=== PATIENT | female | born 1945 | race African-American/Black ===

== ENCOUNTER → 2018-03-25 | Outpatient (CLI) | payer MEDICARE | END | disposition home or self-care (01) | LOC: KCIC MRI 12:34 | DX: S43.492A Other sprain of left shoulder joint, initial encounter (principal); X58.XXXA Exposure to other specified factors, initial encounter; Y93.89 Activity, other specified; Y92.89 Other specified places as the place of occurrence of the external cause; Y99.8 Other external cause status | CPT/HCPCS: 73221 ==

== ENCOUNTER → 2019-10-29 | Day surgery (SDC) | payer MEDICARE ==
[~2019-10-29] MED LIST: ACET-704 PO; FEBU40TA PO; FERR220S8 PO; HYDR-3164 PO; LIDOCAINE 2% PF 5 ML VIAL. ONE; METO50TA6 PO; POTA10TA12 PO; PROPOFOL 20 ML IV ONE; ZOLP10TA PO
[2019-10-29 07:54] VITALS: BP 143/74
--- NOTE | 2019-10-29 08:50 | CONS ---
DATE OF CONSULTATION: 10/29/2019 REFERRING PHYSICIAN: TAMMIE Nieves REASON FOR CONSULTATION: Colorectal screening. HISTORY OF PRESENT ILLNESS: This 74-year-old -Luxembourger female with past medical history significant for hypertension and hyperlipidemia is seen for interval colon exam. Previous exam was performed in 2009 which was unrevealing. Bowel habits are regular. No diarrhea or constipation. Weight and appetite are stable. No bleeding is present. She is noted to have a pelvic mass without pain at this time and has mild anemia with it. Interval colonoscopy is recommended to further assess. PAST MEDICAL HISTORY: 1. Arthritis. 2. Hypertension. 3. Hyperlipidemia. ALLERGIES: IBUPROFEN. MEDICATIONS: Include: 1. Tylenol. 2. Ferrous sulfate. 3. Metoprolol. 4. Zolpidem. 5. K-Alexia. SOCIAL HISTORY: She is a former smoker, nondrinker. PAST SURGICAL HISTORY: 1. Back surgery. 2. Cholecystectomy. 3. Tubal ligation. REVIEW OF SYSTEMS: Per records. PHYSICAL EXAMINATION: GENERAL: Reveals a well-nourished, well-developed -Luxembourger female. VITAL SIGNS: Temperature 97.4, pulse 66, respirations 20. LUNGS: Clear. CARDIOVASCULAR: Reveals an S1, S2 without S3, S4 or appreciable murmur. ABDOMEN: Reveals a soft abdomen, normal bowel sounds, without appreciable hepatosplenomegaly. EXTREMITIES: Reveals no cyanosis, clubbing or edema. IMPRESSION: Colorectal screening is warranted at this time. Risks and benefits of the procedure including risk of hemorrhage and perforation during the operation have been discussed with the patient previously and she is willing to proceed. ANTHONY CARLOS MD DR: CAMILLA/francisco JOB#: [id number] / [id number]
== END ==
LOC: ENDOS 06:03
PROVIDERS: ATTEND Internal Medicine Gastroenterology
DX: D64.9 Anemia, unspecified (principal); K63.89 Other specified diseases of intestine; K64.0 First degree hemorrhoids; I10 Essential (primary) hypertension; E78.5 Hyperlipidemia, unspecified; Z87.39 Personal history of other diseases of the musculoskeletal system and connective tissue; Z88.1 Allergy status to other antibiotic agents; Z87.891 Personal history of nicotine dependence; Z90.49 Acquired absence of other specified parts of digestive tract; Z98.51 Tubal ligation status
CPT/HCPCS: 45378; J2001; J2704